=== PATIENT | female | born 1970 | race Caucasian/White ===

== ENCOUNTER 2016-08-09 09:50 | Emergency (ER) | payer OTHER ==
[~2016-08-09] VITALS: Ht 154.9 cm; Wt 73.0 kg
[2016-08-09] MEDS ORDERED: FAMOTIDINE 20MG/2ML VIAL IV ONE (10:15)
[2016-08-09] MEDS ORDERED: SODIUM CHLORIDE 0.9% 1,000 ML IV SCH (10:15)
[2016-08-09] MEDS ORDERED: DIPHENHYDRAMINE 50MG/ML VIAL IV ONE (10:15)
[2016-08-09] MEDS ORDERED: DEXAMETHASONE 10MG/ML 1ML VIAL IV ONE (10:15)
[2016-08-09] MEDS ORDERED: EPINEPHRINE 1:1000 1 MG/ML AMP IM ONE (10:30)
[2016-08-09] MEDS ORDERED: ONDANSETRON HCL 4MG/2ML VIAL IV ONE (10:45)
[2016-08-09] MEDS ORDERED: PREDNISONE 20MG TABLET PO ONE (13:00)
[2016-08-09 13:09] VITALS: BP 111/65
== END 2016-08-09 13:17 | disposition home or self-care (01) ==
LOC: ER 09:50
DX: T78.40XA Allergy, unspecified, initial encounter (principal); Z88.6 Allergy status to analgesic agent; Z91.010 Allergy to peanuts; Y93.89 Activity, other specified; Y99.9 Unspecified external cause status; Y92.89 Other specified places as the place of occurrence of the external cause; R06.02 Shortness of breath
CPT/HCPCS: 93005; 96372; 96374; 96375; 99284; J0171; J1100; J1200; J2405; J3490; J7030; J7512; Z7610

== ENCOUNTER 2019-01-14 12:41 | Emergency (ER) | payer MEDICAID, OTHER | END 2019-01-14 14:29 | disposition left against medical advice (07) | LOC: ER 13:23 | DX: R68.89 Other general symptoms and signs (principal); Z53.21 Procedure and treatment not carried out due to patient leaving prior to being seen by health care provider ==